=== PATIENT | male | born 1955 | race Caucasian/White ===

== ENCOUNTER 2019-04-08 07:40 | Day surgery (SDC) | payer BC ==
[~2019-04-08 07:40] MED LIST: Lactated Ringers 1,000 ML IV SCH; Sodium Chloride 0.9% 10 ML Syringe FLUSH PRN
[2019-04-08] MEDS ORDERED: Phenylephrine 0.5% Nasal Spray 15 ML Bot NAS ONE (07:41)
[2019-04-08] MEDS ORDERED: Midazolam 1 MG/ML 2 ML SDV IV ONE (07:41)
[2019-04-08] MEDS ORDERED: Dexmedetomidine 200 MCG/2 ML SDV IV ONE (07:41)
[2019-04-08] MEDS ORDERED: Propofol 200 MG/20 ML SDV IV ONE (07:41)
[2019-04-08] MEDS ORDERED: fentaNYL 100 MCG/2 ML SDV IV ONE (07:41)
[2019-04-08] MEDS ORDERED: Ketorolac 30 MG/ML SDV IVPUSH ONE (07:41)
[2019-04-08] MEDS ORDERED: Ketamine 500 mg/10 ML MDV IV ONE (07:41)
[2019-04-08] MEDS ORDERED: ceFAZolin 2 GM in Premix Bag 1 BAG IV ONE (09:00)
--- NOTE | 2019-04-08 09:16 | PCM.HPR ---
H & P Addendum review - H & P Addendum Review Date of Original H & P: 04/07/19 Date Reviewed: 04/08/19 Time Reviewed: 09:00 Patient was Examined: No Changes
[2019-04-08] MEDS ORDERED: Bupivacaine 0.25% 30 ML SDV ONE (09:59)
[2019-04-08] MEDS ORDERED: Lidocaine 1% with EPINEPHrine 1:100,000 20 ML MDV ONE (10:00)
--- NOTE | 2019-04-08 10:13 | PCM.OPNOTE ---
- General Post-Op/Procedure Note Date of Surgery/Procedure: 04/08/19 Operative Procedure(s): Umbilical Hernia Repair Findings: Incarcerated preperitoneal fat Pre Op Diagnosis: Umb Hernia Post-Op Diagnosis: Same Anesthesia Technique: Local, MAC Primary Surgeon: Eugenio Burrell Anesthesia Provider: Colleen ESCOBAR in mLs: 5 Complications: None Condition: Good
[2019-04-08] MEDS ORDERED: Acetaminophen/HYDROcodone 325-5 MG Tab PO ONE (10:28)
--- NOTE | 2019-04-08 12:00 | OR ---
DATE OF OPERATION: 04/08/2019 SURGEON: Eugenio Burrell MD PREOPERATIVE DIAGNOSIS: Incarcerated umbilical hernia. POSTOPERATIVE DIAGNOSIS: Incarcerated umbilical hernia. PROCEDURE: Umbilical hernia repair. ANESTHESIA: Local with IV sedation. DESCRIPTION OF PROCEDURE: The patient was brought to the operating room, where IV sedation was administered. The abdomen was prepped with ChloraPrep and draped sterilely. A 50:50 mixture of 1% lidocaine with epinephrine and 0.25% Marcaine was infiltrated in the periumbilical skin and later at the level of the fascia. The infraumbilical incision was made and extended into the subcutaneous tissue. Sharp dissection was used to separate the overlying skin from the hernia sac. The hernia sac was dissected down to the level of the fascia and was narrow approximately 1 cm in diameter. I opened the hernia sac and incarcerated preperitoneal fat with some ascites fluid present. The hernia sac diameter was approximately 2 cm. This was transected and sent for pathology review. The fascial edges were strong and primary closure was felt appropriate. This was done with interrupted far-near/near-far #0 Prolene sutures providing a tension-free repair. The subcutaneous tissue was irrigated and fascia injected with local anesthetic. The umbilical skin was secured to the fascia with #3-0 Vicryl. The subcutaneous tissue was reapproximated with #3-0 Vicryl and skin closed with a running #4-0 Vicryl subcuticular suture. Benzoin and Steri-Strips were placed and a sterile dressing applied. The patient tolerated the procedure well. ESTIMATED BLOOD LOSS: 5 mL. He returned to postanesthesia in stable condition. /[id number] ABISAI/KACIEL CC: Pavithra Thao CNP [address] [id number]
== END 2019-04-08 11:45 | disposition home or self-care (01) ==
LOC: FB.SDS 07:40
PROVIDERS: ATTEND Surgery
DX: K42.0 Umbilical hernia with obstruction, without gangrene (principal); N40.0 Benign prostatic hyperplasia without lower urinary tract symptoms
CPT/HCPCS: 49587; A9270; J0690; J1885; J2250; J2704; J3010; J3490; J7120; 88302